=== PATIENT | male | born 1950 | race Caucasian/White ===

== ENCOUNTER 2019-04-10 08:16 | Day surgery (SDC) | payer MEDICARE, BC ==
[2019-04-10] VITALS (9 sets, daily range): BP systolic 128–155; BP diastolic 75–92
[~2019-04-10] VITALS: Ht 185.4 cm; Wt 113.4 kg
[~2019-04-10 08:16] MED LIST: ALLOPURINOL100 M1 ORAL; BREO ELLIPTA 11 EACH IH; BSS 15ml BTL ONE; BSS 500ml btl ONE; Bupivacaine 0.75% 30ml vial INJ ONE; Dexamethasone 4mg/ml vial ONE; EPINEPHrine 1mg/1ml Amp ONE; FUROSEMIDE20 M1 ORAL; Kenalog-40 1ml Vial ONE; LIOTHYRONINE SO5 MCG PO; LOSARTAN POTAS100 MG ORAL; Lidocaine 2% MPF 5ml Vial INJ ONE; Neosporin Oph Soln 5ml Btl ONE; PROAIR HFA8.5 GM INH; Polysporin Opth Oint 3.5gm ONE; Povidone-Iodine 5% opth solution ONE; Pred Forte 1% Opth Susp 1ml ONE; Proparacaine 0.5% Opth Soln 15ml RIGHT EYE ONE; SYNTHROID25 MCG ORAL; Sodium Hyaluronate 10 mg/ml 0.85ml ONE; Tetracaine 0.5% Opth 4ml Soln ONE
[2019-04-10] MEDS ORDERED: Tropicamide 1% Opth 15ml Soln ONE (08:38)
[2019-04-10] MEDS ORDERED: Cyclopentolate 1% Opth Sol 2ml ONE (08:38)
[2019-04-10] MEDS ORDERED: Phenylephrine 2.5% Op 2ml Soln ONE (08:38)
[2019-04-10] MEDS ORDERED: Proparacaine 0.5% Opth Soln 15ml ONE (08:38)
[2019-04-10] MEDS: Tropicamide 1% Opth 15ml Soln RIGHT EYE SCH ×3 (08:42→08:55)
[2019-04-10] MEDS: Cyclopentolate 1% Opth Sol 2ml RIGHT EYE SCH ×3 (08:42→08:56)
[2019-04-10] MEDS: Phenylephrine 2.5% Op 2ml Soln RIGHT EYE SCH ×3 (08:42→08:56)
[2019-04-10] MEDS ORDERED: fentaNYL 100 mcg/2 mL IV ONE (09:01)
[2019-04-10] MEDS ORDERED: Midazolam 2mg/2ml Inj ONE (09:01)
--- NOTE | 2019-04-10 09:05 | NUR ---
PT HAD SIP OF WATER WITH BP MED AT 0630.
--- NOTE | 2019-04-10 09:06 | Pre-Procedure Note/Attestation ---
Pre-Procedure Note/Attestation Complete Prior to Procedure Planned Procedure: right Procedure Narrative: RD Indications for Procedure Pre-Operative Diagnosis: RD Attestation I attest that I discussed the nature of the procedure; its benefits; risks and complications; and alternatives (and the risks and benefits of such alternatives ), prior to the procedure, with the patient (or the patient's legal medical field representative). I attest that, if there was a reasonable possibility of needing a blood transfusion, the patient (or the patient's legal medical field representative) was given the [facility] standardized written summary, pursuant to the [place] Blood Safety Act ([place] Health and Safety Code # 1645, as amended). I attest that I re-evaluated the patient just prior to the surgery and that there has been no change in the patient's H&P, except as documented below: Alexandru Silveira M.D., MD Apr 10, 2019 09:06
--- NOTE | 2019-04-10 09:06 | Operative Note - PDOC ---
Operative Note Operative Note Pre-op Diagnosis: Retinal detachment with vitreous traction, RIGHT EYE Procedure: Pars plans vitrectomy, membrane peel, endolaser, air-fluid exchange, infusion of C3F8 gas (16%), RIGHT EYE Post-op Diagnosis: Same Implant(s) used?: No Indications for Procedure The patient has vision loss due to retinal detachment and presents for surgery after review of the risks, benefits, alternative and signing informed consent into the medical chart. Description of Procedure The patient was met prior to surgery and informed consent was reviewed. The operative eye was verified, marked and dilated. The patient was transferred to the operative suite, where cardiopulmonary monitoring was established and RB was administered without complications. The eye was prepped and draped in sterile ophthalmic fashion. A lid speculum was placed. Under microscope visualization, the 23 gauge infusion line was placed 4 millimeters inferotemporally. After visualization of the tip in the vitreous cavity, the infusion line was turned on. The superotemporal and superonasal cannulas were placed. Under BIOM visualization, there was noted to be inferior vitreous base contraction/pursing. Kenalog was used to stain the vitreous and the vitreous base was shaved under scleral depression meticulously. As the vitreous was removed and retinal traction was released; forceps were used to open an area of early star-fold at 5 oclock. Meticulous vitrectomy was performed up to the edges further. A posterior drainage retinotomy was created and the subretinal fluid was drainged via air fluid exchange. Air migrated into the AC and Healon was used to regain visualization. Endolaser was applied to the retinotomy and the break inferior. Infusion of C3F8 was performed. Healon was removed from the AC. The cannulas and infusion line were removed; The temporal haptic was reinforced with overlying conjunctiva and sutured with 7-0 vicryl sutures. The eye maintained normal intraocular pressure. Subconjunctival vancomycin and dexamethasone were administered. The lid speculum was removed. The eye was cleaned of prep and drape. Atropine drop and Maxitrol ointment was applied. A pressure patch was placed. The patient was turned over to the anesthesia team, extubated and transferred in stable condition to the PACU. Alexandru Silveira M.D., MD Apr 10, 2019 09:06
[2019-04-10] MEDS ORDERED: Indocyanine Green 25mg Inj INJ ONE (09:15)
[2019-04-10] MEDS ORDERED: NS Irrig 1000ml ONE (09:30)
[2019-04-10] MEDS ORDERED: LR 1000ml ONE (09:30)
[2019-04-10] MEDS ORDERED: Sterile Water Irrig 1000ml IRRIG ONE (09:30)
[2019-04-10] MEDS ORDERED: Propofol 200mg/20ml IV ONE (09:30)
[2019-04-10] MEDS ORDERED: LR 1000ml 1,000 ML IVLG SCH (09:47)
--- NOTE | 2019-04-10 09:47 | Anethesia Preoperative Eval ---
Anesthesia Pre-op PMH/ROS General Date of Evaluation: Apr 10, 2019 Time of Evaluation: 09:08 Anesthesiologist: Randi ASA Score: ASA 3 Mallampati Score Class I : Soft palate, uvula, fauces, pillars visible Class II: Soft palate, uvula, fauces visible Class III: Soft palate, base of uvula visible Class IV: Only hard plate visible Mallampati Classification: Class III Surgeon: Jordana Diagnosis: R eye retinal detouchment Surgical Procedure: R eye PPV Anesthesia History: none Social History: smoking - h/o Family History: no anesthesia problems Allergies: Coded Allergies: LISINOPRIL (Verified Allergy, Unknown, 04/09/19) Medications: see eMAR Patient NPO?: Yes Past Medical History Cardiovascular: Reports: HTN; Denies: CAD, SC, valve dz, arrhythmia, other Pulmonary: Reports: COPD, SANYA Gastrointestinal/Genitourinary: Reports: GERD; Denies: CRI, ESRD, other Neurologic/Psychiatric: Denies: dementia, CVA, depression/anxiety, TIA, other Endocrine: Reports: hypothyroidism; Denies: DM, steroids, other HEENT: Reports: cataract (L), cataract (R) Hematology/Immune: Denies: anemia, DVT, bleeding disorder, other Musculoskeletal/Integumentary: Denies: OA, RA, DJD, DDD, edema, other Other: obesity PMH Narrative: as above PSxH Narrative: Bilateral eye Sx Anesthesia Pre-op Phys. Exam Physician Exam Last Vital Signs Date Time Temp Pulse Resp B/P (MAP) Pulse Ox O2 Delivery O2 Flow Rate FiO2 04/10/19 08:53 Room Air 04/10/19 08:46 97.8 67 20 155/85 98 Constitutional: NAD Neurologic: CN 2-12 intact Cardiovascular: RRR Respiratory: CTA Gastrointestinal: other - obesity Airway Exam Mallampati Score: Class III MO: limited Neck: Short, thick ROM: limited Teeth: intact Dentures: no upper, no lower Anesthesia Pre-op A/P Labs see chart Studies Pre-op Studies: EKG - SR Risk Assessment & Plan Assessment: ASA 3 Plan: MAC with retrobulbar block Status Change Before Surgery: No Pre-Antibiotics Drug: None John Bryan MD Apr 10, 2019 09:47
[2019-04-10] MEDS ORDERED: DiphenhydrAMINE 50mg/ml Inj IVP PRN (10:00)
[2019-04-10] MEDS ORDERED: fentaNYL 100 mcg/2 mL IV PRN (10:00)
[2019-04-10] MEDS ORDERED: Sodium Hyaluronate 10 mg/ml 0.85ml ONE (10:40)
[2019-04-10] MEDS ORDERED: EPINEPHrine 1mg/1ml Amp ONE (10:40)
--- NOTE | 2019-04-10 11:04 | Immediate Post-Op Evaluation ---
Immediate Post-Op Evalulation Immediate Post-Op Evalulation Procedure: R eye PPV, fluid to gas exchange Date of Evaluation: Apr 10, 2019 Time of Evaluation: 11:03 IV Fluids: 300 Blood Products: none Estimated Blood Loss: min Urinary Output: none Blood Pressure Systolic: 136 Blood Pressure Diastolic: 78 Pulse Rate: 68 Respiratory Rate: 20 O2 Sat by Pulse Oximetry: 99 Temperature (Fahrenheit): 97.7 Pain Score (1-10): 2 Nausea: No Vomiting: No Complications none Patient Status: awake, patent, none Hydration Status: adequate John Bryan MD Apr 10, 2019 11:04
--- NOTE | 2019-04-10 12:33 | 48 Hour Post Anesthesia Eval ---
Post Anesthesia Evaluation Procedure: R eye PPV, fluid to gas exchange Date of Evaluation: Apr 10, 2019 Time of Evaluation: 12:31 Blood Pressure Systolic: 142 0: 76 Pulse Rate: 68 Respiratory Rate: 20 Temperature (Fahrenheit): 97.6 O2 Sat by Pulse Oximetry: 98 Airway: patent Nausea: No Vomiting: No Pain Intensity: 2 Hydration Status: adequate Cardiopulmonary Status: stable Mental Status/LOC: patient returned to baseline Follow-up Care/Observations: n/a Post-Anesthesia Complications: none Follow-up care needed: ready to discharge John Bryan MD Apr 10, 2019 12:33
== END 2019-04-10 12:00 | disposition home or self-care (01) ==
LOC: SUR 08:16
DX: H33.41 Traction detachment of retina, right eye (principal)
CPT/HCPCS: 67039; J0171; J1100; J2250; J2704; J3010; J3301; J3370; J3490; J7120; 94003; 94150